=== PATIENT | male | born 1965 | race Caucasian/White ===

== ENCOUNTER 2017-09-12 09:38 | Day surgery (SDC) | payer OTHER ==
[~2017-09-12] VITALS: Ht 175.3 cm; Wt 96.6 kg
== END 2017-09-12 23:08 | disposition home or self-care (01) ==
LOC: ORSCMMR 09:38
PROVIDERS: Internal Medicine Gastroenterology
PROC: 0DJD8ZZ Inspection of Lower Intestinal Tract, Via Natural or Artificial Opening Endoscopic (ICD-10-PCS; principal; 2017-09-12 10:30)
DX: Z12.11 Encounter for screening for malignant neoplasm of colon (principal); I10 Essential (primary) hypertension; K57.30 Diverticulosis of large intestine without perforation or abscess without bleeding; E66.9 Obesity, unspecified; Z68.31 Body mass index [BMI] 31.0-31.9, adult
CPT/HCPCS: J7120